=== PATIENT | male | born 1980 | race African-American/Black ===

== ENCOUNTER 2019-10-01 03:54 | Emergency (ER) | payer BC ==
[~2019-10-01] VITALS: Ht 157.5 cm; Wt 97.5 kg
[2019-10-01 03:55] VITALS: BP 114/77
[2019-10-01 04:31] LABS: ABSOLUTE NEUTROPHILS 2.4 thou/uL (1.4-8.2); BASOPHILS 1.3 % (0.0-2.0); EOSINOPHILS 4.6 % (0.0-3.0); HEMATOCRIT 37.8 % (42.0-52.0); HEMOGLOBIN 13.1 gm/dL (14.0-18.0); LYMPHOCYTES 39.1 % (24.0-44.0); MCH 34.6 pg (26.0-34.0); MCHC 34.8 g/dL (28.0-37.0); MCV 99.5 fL (80.0-100.0); PLATELET COUNT 255 thou/uL (150-400); RDW 12.3 % (10.5-14.5); WBC 4.7 thou/uL (4.0-11.0)
[2019-10-01 04:35] LABS: CALCIUM 7.9 mg/dL (8.5-10.1); CREATININE 1.2 mg/dL (0.7-1.3); POTASSIUM 3.7 mmol/L (3.5-5.1)
--- NOTE | 2019-10-01 08:07 | EKG ---
[facility] [place] [address] ELECTROCARDIOGRAM REPORT Name: DENI MURILLO II Room #: DEP [facility]#: [id number] Admission: 10/01/19 Attend Phys: Discharge: 10/01/19 Date of : 80 Report #: [id number] THIS REPORT FOR: cc: NO FAMILY PHYSICIAN or PCP NO FAMILY PHYSICIAN or PCP Herve Viramontes MD [facility] ~ THIS REPORT FOR: //name// [facility] ED Test Date: 2019-10-01 Test Time: 04:07:21 Pat Name: DENI MURILLO Department: Room: Gender: Transplant Case Manager: laura espinoza rn : 1980 Requested By: Epifanio Live Order Number: [id number] MD: Herve Viramontes Measurements Intervals [place] Rate: 82 P: 51 KS: 142 QRS: -17 QRSD: 89 T: 29 QT: 378 QTc: 442 Interpretive Statements Sinus rhythm Borderline left axis deviation No previous ECG available for comparison Electronically Signed On 10-01-2019 8:07:26 CDT by Herve Viramontes [email or web address] <ELECTRONICALLY SIGNED> By: Herve Viramontes MD, FAC 10/01/19 0807 [id number] Herve Viramontes MD, [facility] /EPI
== END 2019-10-01 05:05 | disposition home or self-care (01) ==
LOC: ER 03:54
PROVIDERS: Emergency Medicine
DX: M25.512 Pain in left shoulder (principal); R20.0 Anesthesia of skin; R20.2 Paresthesia of skin

== ENCOUNTER 2019-10-18 12:01 | Emergency (ER) | payer BC ==
[~2019-10-18] VITALS: Ht 177.8 cm; Wt 104.3 kg
[2019-10-18] MEDS ORDERED: NORCO 7.5-3251 EACH PO (13:54)
[2019-10-18] MEDS ORDERED: CYCLOBENZAPRINE5 MG PO (13:54)
[2019-10-18] MEDS ORDERED: MEDROLDOSEPACK PO (13:54)
[2019-10-18 14:06] VITALS: BP 125/79
== END 2019-10-18 14:07 | disposition home or self-care (01) ==
LOC: ER 12:01
DX: M54.5 Low back pain (principal); X50.0XXA Overexertion from strenuous movement or load, initial encounter; Y93.89 Activity, other specified; Y92.89 Other specified places as the place of occurrence of the external cause; Y99.8 Other external cause status